=== PATIENT | male | born 2000 | race Caucasian/White ===

== ENCOUNTER 2020-08-22 15:36 | Outpatient (REF) | payer OTHER, SELFPAY | END 2020-08-22 15:37 | disposition home or self-care (01) | LOC: HO.LAB 15:36 | PROVIDERS: Visit Provider Internal Medicine | DX: Z20.822 Contact with and (suspected) exposure to COVID-19 (principal) | CPT/HCPCS: C9803; U0003; U0005 ==

== ENCOUNTER 2020-09-18 14:22 | Outpatient (REF) | payer OTHER, SELFPAY | END 2020-09-18 14:23 | disposition home or self-care (01) | LOC: HO.LAB 14:22 | PROVIDERS: Visit Provider Internal Medicine | DX: Z20.822 Contact with and (suspected) exposure to COVID-19 (principal) | CPT/HCPCS: C9803; U0003; U0005 ==

== ENCOUNTER 2021-03-10 15:07 | Outpatient (REF) | payer OTHER, SELFPAY ==
[2021-03-10 16:01] LABS: COVID-19 Test Negative (Negative)
== END 2021-03-10 15:08 | disposition home or self-care (01) ==
LOC: HO.LAB 15:07
PROVIDERS: Visit Provider Internal Medicine
DX: Z20.822 Contact with and (suspected) exposure to COVID-19 (principal)
CPT/HCPCS: 36415; 87635; C9803